=== PATIENT | male | born 1980 | race Hispanic/Latino ===

== ENCOUNTER 2023-10-15 08:47 | Emergency (ER) | payer BC ==
[~2023-10-15] VITALS: Ht 162.6 cm; Wt 81.2 kg
[2023-10-15 09:25] LABS: BASOPHILS # (AUTO) 0.02 K/uL (0.00-0.20); BASOPHILS % (AUTO) 0.3 % (0.0-5.0); EOSINOPHILS # (AUTO) 0.08 K/uL (0.00-0.70); EOSINOPHILS % (AUTO) 1.2 % (0.0-8.0); HEMATOCRIT 48.2 % (42-54); IMMATURE GRANULOCYTE ABSOLUTE 0.02 K/uL (0-1); LYMPHOCYTES # (AUTO) 0.8 K/uL (1.0-4.8); LYMPHOCYTES % (AUTO) 12.5 % (21.0-51.0); MEAN CORPUSCULAR HEMOGLOBIN 30.6 pg (27.0-33.0); MEAN CORPUSCULAR HGB CONC 34.2 g/dL (32.0-36.0); MEAN CORPUSCULAR VOLUME 89.4 fL (79-99); MONOCYTES # (AUTO) 0.4 K/uL (0.1-1.0); MONOCYTES % (AUTO) 5.5 % (3.0-13.0); NEUTROPHILS # (AUTO) 5.2 K/uL (1.8-7.7); NEUTROPHILS % (AUTO) 80.2 % (40.0-77.0); PLATELET COUNT (AUTO) 235 K/uL (130-400); RED BLOOD CELL COUNT(AUTO) 5.39 MIL/uL (4.50-6.20); RED CELL DISTRIBUTION WIDTH 12.5 % (11.0-15.5); WHITE BLOOD COUNT (AUTO) 6.5 K/uL (4.8-10.8)
[2023-10-15 09:34] LABS: CREATININE 0.8 mg/dL (0.5-1.3); POTASSIUM 3.9 mmol/L (3.5-5.1)
[2023-10-15 09:51] LABS: APPEARANCE,URINE CLEAR (CLEAR); BILIRUBIN,URINE NEGATIVE (NEGATIVE); COLOR,URINE YELLOW (YELLOW); GLUCOSE, URINE (UA) NEGATIVE (NEGATIVE); KETONES,URINE NEGATIVE (NEGATIVE); LEUKOCYTE ESTERASE ,URINE NEGATIVE Leu/uL (NEGATIVE); NITRATE,URINE NEGATIVE (NEGATIVE); OCCULT BLOOD,URINE NEGATIVE (NEGATIVE); PROTEIN,URINE 50 mg/dL (NEGATIVE); UROBILINOGEN,URINE 0.2 mg/dL (0.2-1.0)
[2023-10-15 09:54] LABS: ADD UA MICROSCOPIC YES
[2023-10-15 09:57] LABS: BACTERIA,URINE FEW /HPF (None Seen); MUCUS,URINE MOD LPF (None Seen)
[2023-10-15] MEDS: ONDANSETRON ODT 4MG TAB SL ONE (10:23)
[2023-10-15] MEDS: KETOROLAC 30MG VIAL (30MG/ML) IM ONE (10:23)
[2023-10-15] MEDS ORDERED: ONDA22I PO (10:49)
[2023-10-15] MEDS ORDERED: IBUP-2077 PO (10:49)
[2023-10-15 11:03] VITALS: BP 131/78; PULSE 70; RESP 18; O2SAT 98
== END 2023-10-15 11:23 | disposition home or self-care (01) ==
LOC: EDH 08:47
DX: R10.13 Epigastric pain (principal); R11.2 Nausea with vomiting, unspecified; R82.71 Bacteriuria; K52.9 Noninfective gastroenteritis and colitis, unspecified; A08.4 Viral intestinal infection, unspecified; Z90.49 Acquired absence of other specified parts of digestive tract
CPT/HCPCS: 99284; 74176; 80048; 83690; 85025; 81001; 36415; 96372; J1885

== ENCOUNTER 2023-11-24 13:10 | Emergency (ER) | payer BC ==
[~2023-11-24] VITALS: Ht 162.6 cm; Wt 83.5 kg
[~2023-11-24 13:10] MED LIST: IBUP-2077 PO; ONDA22I PO
[2023-11-24 13:27] VITALS: BP 172/76; PULSE 72; RESP 18
[2023-11-24 14:50] LABS: SARS-CoV-2, RNA, NAAT NEGATIVE SARS CoV-2 (NEGATIVE)
[2023-11-24 14:57] LABS: INFLUENZA TYPE A NEGATIVE FOR TYPE A (NEG); INFLUENZA TYPE B NEGATIVE FOR TYPE B (NEG)
[2023-11-24] MEDS ORDERED: BROM118S48 PO (16:24)
== END 2023-11-24 16:34 | disposition home or self-care (01) ==
LOC: EDH 13:10
DX: B34.9 Viral infection, unspecified (principal); J40 Bronchitis, not specified as acute or chronic; Z20.822 Contact with and (suspected) exposure to COVID-19; Z79.899 Other long term (current) drug therapy; Z90.49 Acquired absence of other specified parts of digestive tract
CPT/HCPCS: 71045; 87635; 87804